=== PATIENT | male | born 1975 | race Hispanic/Latino ===

== ENCOUNTER 2022-06-15 14:18 | Emergency (ER) | payer OTHER, SELFPAY ==
[2022-06-15] MEDS ORDERED: Ketorolac Tromethamine 30 MG/ML VIAL ONE (16:03)
[2022-06-15] MEDS ORDERED: Morphine 10 MG/ML VIAL ONE (16:04)
== END 2022-06-15 18:35 | disposition home or self-care (01) ==
LOC: CSHERS 14:18
DX: M54.9 Dorsalgia, unspecified (principal)
CPT/HCPCS: 93005; 96360; 96372; J1885; J2270